=== PATIENT | female | born 1980 | race Caucasian/White ===

== ENCOUNTER → 2016-11-17 | Outpatient (CLI) | payer OTHER ==
[~2016-11-17] MED LIST: PRENTAB9 PO
[2016-11-17 18:05] LABS: MEAN CORPUSCULAR HGB CONC 33.5 g/dl (32.0-36.5); MEAN CORPUSCULAR VOLUME 95.6 fl (80.0-96.0); RED CELL DISTRIBUTION WIDTH 12.7 % (11.5-14.5); WHITE BLOOD COUNT 7.7 K/mm3 (4.0-10.0)
== END | disposition home or self-care (01) ==
LOC: M SMT 14:33
PROVIDERS: ATTEND Advanced Practice Midwife
DX: Z34.82 Encounter for supervision of other normal pregnancy, second trimester (principal); Z36 Encounter for antenatal screening of mother; Z3A.00 Weeks of gestation of pregnancy not specified

== ENCOUNTER 2016-12-08 08:22 | Outpatient (CLI) | payer OTHER ==
[~2016-12-08] VITALS: Ht 167.6 cm; Wt 90.0 kg
[2016-12-08] MEDS ORDERED: ACET50TA PO (08:29)
[2016-12-08 09:56] VITALS: BP 139/65
[2016-12-08] MEDS ORDERED: ULTRACET TAB PO PRN (10:00)
[2016-12-08 10:24] VITALS: BP 124/60
[2016-12-08 10:30] LABS: AMYLASE 74 U/L (25-115)
[2016-12-08] MEDS ORDERED: PRIL20CA9 PO (11:03)
[2016-12-08] MEDS ORDERED: TRAM37.53 PO (13:48)
== END 2016-12-08 10:26 | disposition home or self-care (01) ==
LOC: M LDO 08:22
PROVIDERS: ATTEND Obstetrics & Gynecology
DX: O26.893 Other specified pregnancy related conditions, third trimester (principal); Z3A.30 30 weeks gestation of pregnancy

== ENCOUNTER → 2017-01-13 | Outpatient (REF) | payer OTHER ==
[~2017-01-13] MED LIST changes: +ACET50TA PO; +PRIL20CA9 PO; +TRAM37.53 PO
== END ==
LOC: M LAB REF 16:56
PROVIDERS: ATTEND Obstetrics & Gynecology
DX: Z34.83 Encounter for supervision of other normal pregnancy, third trimester (principal); Z36 Encounter for antenatal screening of mother; Z3A.00 Weeks of gestation of pregnancy not specified

== ENCOUNTER → 2017-01-14 | Outpatient (REF) | payer OTHER | LOC: M LAB REF 16:50 | PROVIDERS: ATTEND Advanced Practice Midwife | DX: Z34.83 Encounter for supervision of other normal pregnancy, third trimester (principal); Z36 Encounter for antenatal screening of mother; Z3A.00 Weeks of gestation of pregnancy not specified ==

== ENCOUNTER 2017-01-25 12:10 | Inpatient (IN) | payer OTHER ==
[~2017-01-25] VITALS: Ht 167.6 cm; Wt 95.0 kg
[2017-01-25] MEDS ORDERED: LR 1,000 ML IV SCH (12:16)
[2017-01-25 12:23] VITALS: BP 121/69
[2017-01-25] MEDS ORDERED: BICITRA 30ML SOLN UDC PO ONE (12:30)
[2017-01-25 13:41] VITALS: BP 127/57
[2017-01-25 13:47] LABS: MEAN CORPUSCULAR HEMOGLOBIN 30.2 pg (27.0-33.0); MEAN CORPUSCULAR HGB CONC 33.1 g/dl (32.0-36.5); MEAN CORPUSCULAR VOLUME 91.1 fl (80.0-96.0); RED CELL DISTRIBUTION WIDTH 12.5 % (11.5-14.5)
[2017-01-25 14:05] LABS: ALT/SGPT 19 U/L (12-78); AST/SGOT 19 U/L (15-37); BILIRUBIN,TOTAL 0.2 MG/DL (0.2-1.0); CREATININE FOR GFR 0.67 MG/DL (0.55-1.02); GLOMERULAR FILTRATION RATE > 60.0 (>60); URIC ACID 5.5 MG/DL (2.6-6.0)
[2017-01-25 14:45] VITALS: BP 101/54
[2017-01-25] MEDS ORDERED: OXYC1TAB23 PO (15:58)
[2017-01-25] MEDS ORDERED: LACTATED RINGER'S 1000 ML IV ONE (16:00)
[2017-01-25 16:13] VITALS: BP 117/67
--- NOTE | 2017-01-25 16:17 | HPE ---
DATE OF ADMISSION: 01/25/2017 This is a 36-year-old 3, para 2 female at 37-5/7 weeks gestation by 8-week ultrasound, estimated date of confinement (EDC) 02/10/2017, presents for elective repeat section. Indication for delivery prior to 39 weeks is a recent diagnosis of preeclampsia. COURSE: The patient initiated care at 9 weeks gestation on 07/07/2016. Her first trimester blood pressure was 122/82, weight 183 pounds. At 37 weeks on 01/22/2017, she had a blood pressure of 142/92 and trace proteinuria. 24-hour urine was elevated at 325 mg. She also had an elevated uric acid level. At a subsequent visit on 01/25/2017, she had persistently elevated blood pressure of 140/88. OBSTETRICAL HISTORY: 1. September 2004, 41 weeks, section for an 8 pound 9 ounce male . 2. August 2012, 39 weeks, section for an 8 pound 15 ounce male . MEDICAL HISTORY: Recurrent urinary tract infections. SURGICAL HISTORY: 1. Ureteral reimplantation as a child. 2. section times two. ALLERGIES: AUGMENTIN. SOCIAL HISTORY: The patient is . She denies cigarettes, alcohol or drug use. FAMILY HISTORY: Noncontributory. PHYSICAL EXAMINATION: Blood pressure 140/80, weight 225. She is in no apparent distress. Head and neck exam: Normal. Lungs: Clear. Heart: Regular rate and rhythm. Abdomen: Nontender and gravid. heart tones: Category 1. Extremities: Nontender. Trace edema. LABORATORY: Blood type O positive, rubella immune, RPR nonreactive. Hepatitis B and C negative. HIV negative. Diabetes screen 117. GBS negative on 01/13/2017. ASSESSMENT: A 36-year-old 3, para 2 female at 37-5/7 weeks gestation by 8-week ultrasound, presents with preeclampsia. The patient has a history of two prior sections. PLAN: Repeat section. Consent signed. Surgery is planned for 01/25/2017. .
[2017-01-25] MEDS ORDERED: MORPHINE PRES-FREE INJ 10 MG/10 ML VIAL (J2274) As Ordered ONE (17:32)
[2017-01-25] MEDS ORDERED: ePHEDrine SULFATE 25 MG/5 ML(5MG/ML) SYRINGE As Ordered ONE (17:32)
[2017-01-25] MEDS ORDERED: OXYTOCIN INJ 10 UNITS/ML VIAL (J2590) As Ordered ONE (17:35)
[2017-01-25] MEDS ORDERED: ONDANSETRON 4MG/2ML VIAL (J2405) As Ordered ONE (17:37)
[2017-01-25] MEDS ORDERED: KETOROLAC 60 MG/2 ML VIAL (J1885) As Ordered ONE (17:47)
[2017-01-25] MEDS ORDERED: fentaNYL 100 MCG/2 ML INJECTION (J3010) As Ordered ONE (18:09)
[2017-01-25] MEDS ORDERED: MEPERIDINE 50 MG/ML 1ML VIAL (J2175) As Ordered ONE (18:18)
[2017-01-25] MEDS: LR 1,000 ML IV SCH (18:41)
[2017-01-25] MEDS ORDERED: ONDANSETRON 4MG/2ML VIAL (J2405) IV PRN (18:45)
[2017-01-25] MEDS ORDERED: OXYTOCIN DRIP 30 UNITS in APPROPRIATE DILUENT 1 EA IV ONE (18:45)
[2017-01-25] MEDS ORDERED: RHOGAM 300 MCG (1500 IU) INJ (J2790) IM SCH (18:45)
[2017-01-25] MEDS ORDERED: MEASLES,MUMPS,RUBELLA VACCINE INJ (MMR-II) (90707) SC SCH (18:45)
[2017-01-25] MEDS ORDERED: DOCUSATE SODIUM 100 MG CAP PO PRN (18:45)
[2017-01-25] MEDS ORDERED: OXYTOCIN 30 UNITS IN 0.9% NaCl 500ML IV BAG (J2590) As Ordered ONE (18:49)
[2017-01-25] MEDS ORDERED: fentaNYL 100 MCG/2 ML INJECTION (J3010) IV PRN (19:00)
[2017-01-25] MEDS ORDERED: METOCLOPRAMIDE INJ 10MG/2ML VIAL (J2765) As Ordered ONE (20:11)
[2017-01-25 21:00] VITALS: BP 129/68
[2017-01-25 21:49] VITALS: BP 135/62
[2017-01-25] MEDS: diphenhydrAMINE INJ 50MG/ML VIAL (J1200) IV PRN (22:58)
[2017-01-26] MEDS: KETOROLAC 30 MG/ML VIAL (J1885) IV SCH ×4 (00:02→18:38)
--- NOTE | 2017-01-26 00:18 | RO ---
DATE OF PROCEDURE: 01/25/2017 PREPROCEDURE DIAGNOSIS: 37-5/7 weeks, preeclampsia, prior section times two. POSTPROCEDURE DIAGNOSIS: 37-5/7 weeks, preeclampsia, prior section times two. PROCEDURE: Repeat low transverse section. SURGEON: Dr. Augustin Jim HEATING ELEMENT REPAIRER: Juana Bhardwaj ANESTHESIA: Spinal. ESTIMATED BLOOD LOSS: 600 mL. FLUIDS: 1700 mL of lactated Ringer's. URINE OUTPUT: 300 mL. FINDINGS: 3688 gram or 8 pound 2 ounce male infant, scores 9 and 9, vertex position. Dense adhesions of the bladder to the lower uterine segment with numerous venous sinuses of the lower uterine segment and bladder. There was an incidental cystotomy noted in the dome of the bladder, which was repaired and is described in the report. COMPLICATIONS: Incidental cystotomy. DESCRIPTION OF PROCEDURE: The patient was taken to the operating room where spinal anesthesia was induced. She was prepped and draped in a sterile fashion in the supine position. A De Leon catheter was placed. A Pfannenstiel skin incision was made with a scalpel and carried through to the fascia, the fascia was nicked and extended. Fascia was dissected off the rectus muscles, the rectus muscles were divided, peritoneal cavity was entered. A bladder flap was created. A curvilinear incision was made in the lower uterine segment until clear fluid was noted. This was extended manually. The was delivered from the vertex position without difficulty using standard maneuvers. A nuchal cord times one was reduced manually. Shoulders delivered with ease. The cried spontaneously. The cord was doubly clamped and cut. The was handed off to awaiting nurses. The placenta was expressed. The uterus was exteriorized and cleared of clots and debris. The uterine incision was closed with #0 Vicryl in a running locked fashion. A second imbricating layer of #0 Vicryl was placed. Upon inspection, it appeared that the bladder, which was poorly demarcated, had been partially sewn into the hysterotomy incision. While attempting to reduce the bladder from the incision, a cystotomy was created in the dome of the bladder, approximately 1.5 cm in length. Upon inspection, it appeared to be away from the ureter. The bladder was repaired in the following fashion: #4-0 Vicryl was used and the first layer of bladder was closed in a running fashion, the second layer, including the muscularis of the bladder was then closed in a running fashion. Upon completion of the cystostomy repair, the bladder was filled in a retrograde fashion with sterile milk. There was no evidence of leaking from the bladder and no evidence of any other cystotomy present. The bladder was subsequently drained. The uterus was placed back in the abdominal cavity. Good hemostasis was noted. The peritoneum was closed with #2-0 Vicryl in a running fashion. The fascia was closed with #0 Vicryl in a running fashion. The subcutaneous tissue was irrigated, the deep layers closed with #3-0 chromic in a running fashion, the skin was closed with #4-0 Monocryl subcuticular sutures. Sponge, instrument and needle counts were correct. The patient went to the recovery room in stable condition.
[2017-01-26] MEDS: LR 1,000 ML IV SCH (02:41)
[2017-01-26] MEDS: PERCOCET 5MG/325MG TAB PO PRN ×4 (04:16→19:40)
[2017-01-26] MEDS: diphenhydrAMINE INJ 50MG/ML VIAL (J1200) IV PRN (05:20)
[2017-01-26 06:59] LABS: MEAN CORPUSCULAR HEMOGLOBIN 30.2 pg (27.0-33.0); MEAN CORPUSCULAR HGB CONC 33.2 g/dl (32.0-36.5); RED CELL DISTRIBUTION WIDTH 12.4 % (11.5-14.5); WHITE BLOOD COUNT 9.7 K/mm3 (4.0-10.0)
[2017-01-26 07:10] VITALS: BP 119/56
[2017-01-26] MEDS: PRENATAL VITAMIN TAB PO SCH (07:58)
[2017-01-26] MEDS: NITROFURANTOIN (MACROBID) 100 MG CAP PO SCH (07:58)
[2017-01-26 10:00] VITALS: BP 113/58
[2017-01-26 14:07] VITALS: BP 133/64
[2017-01-26 18:47] VITALS: BP 124/85
[2017-01-26 22:14] VITALS: BP 120/56
[2017-01-27] MEDS: PERCOCET 5MG/325MG TAB PO PRN ×5 (00:03→22:41)
[2017-01-27] MEDS: IBUPROFEN 800 MG TAB PO SCH ×3 (02:06→17:08)
[2017-01-27 05:44] VITALS: BP 117/57
[2017-01-27] MEDS: DOCUSATE SODIUM 100 MG CAP PO SCH ×2 (09:52→21:40)
[2017-01-27] MEDS: PRENATAL VITAMIN TAB PO SCH (09:52)
[2017-01-27] MEDS: NITROFURANTOIN (MACROBID) 100 MG CAP PO SCH (09:53)
[2017-01-27] MEDS: FERROUS GLUCONATE 324 MG TAB PO SCH ×2 (09:53→21:40)
[2017-01-27] MEDS: SIMETHICONE 80 MG CHEW TAB PO PRN ×2 (09:54→22:40)
[2017-01-27 14:25] VITALS: BP 126/68
[2017-01-27] MEDS ORDERED: ONDANSETRON 4 MG ORAL DISINTEGRATING TAB (S0181) PO PRN (15:45)
[2017-01-27 18:29] VITALS: BP 130/73
[2017-01-28] MEDS: IBUPROFEN 800 MG TAB PO SCH ×3 (02:06→18:18)
[2017-01-28] MEDS: PERCOCET 5MG/325MG TAB PO PRN ×3 (03:18→18:58)
[2017-01-28 05:39] VITALS: BP 132/74
[2017-01-28] MEDS: PRENATAL VITAMIN TAB PO SCH (09:11)
[2017-01-28] MEDS: NITROFURANTOIN (MACROBID) 100 MG CAP PO SCH (09:11)
[2017-01-28] MEDS: DOCUSATE SODIUM 100 MG CAP PO SCH ×2 (09:11→22:46)
[2017-01-28] MEDS: FERROUS GLUCONATE 324 MG TAB PO SCH ×2 (09:11→22:46)
[2017-01-28] MEDS ORDERED: NITRO10CA PO (11:33)
[2017-01-28] MEDS ORDERED: IBUP600T26 PO (11:33)
[2017-01-28] MEDS ORDERED: COLA100C3 PO (11:34)
[2017-01-28 18:55] VITALS: BP 129/77
[2017-01-29] MEDS: PERCOCET 5MG/325MG TAB PO PRN ×3 (00:23→12:50)
[2017-01-29] MEDS: IBUPROFEN 800 MG TAB PO SCH ×2 (02:33→09:53)
[2017-01-29 05:40] VITALS: BP 138/81
[2017-01-29] MEDS: DOCUSATE SODIUM 100 MG CAP PO SCH (09:51)
[2017-01-29] MEDS: FERROUS GLUCONATE 324 MG TAB PO SCH (09:52)
[2017-01-29] MEDS: PRENATAL VITAMIN TAB PO SCH (09:52)
[2017-01-29] MEDS: NITROFURANTOIN (MACROBID) 100 MG CAP PO SCH (09:52)
--- NOTE | 2017-01-29 15:30 | DSES ---
DATE OF ADMISSION: 01/25/2017 DATE OF DISCHARGE: HISTORY: 36-year-old, (G) 3, para (P) 2 female at 37 and 5/7 weeks gestation presented for repeat section. The indication for delivery prior to 39 weeks is diagnosis of preeclampsia, which was recently made. Preoperative course was otherwise unremarkable. Her medical history is significant for bilateral ureteral reimplantation surgery as a child. HOSPITAL COURSE: On 01/25/2017, the patient underwent primary low-transverse section. Surgery was complicated by an incidental cystotomy, which was repaired at the time of . The remainder of the surgery was uncomplicated. Postoperative course was unremarkable. She did have De Leon catheter drainage in place during hospitalization to allow healing of the cystotomy repair. went to the intensive care unit (NICU). On postoperative day #4, the patient was deemed stable for discharge. ADMISSION DIAGNOSES: 37 and 5/7 weeks. Prior sections times two. Preeclampsia. DISCHARGE DIAGNOSES: 37 and 5/7 weeks. Prior sections times two. Preeclampsia. PROCEDURES: Repeat low-transverse section, repair of incidental cystotomy. DISPOSITION: Patient will followup for catheter removal. Instructions reviewed.
[2017-01-29] MEDS ORDERED: IBUP-1114 PO (15:34)
[2017-01-29] MEDS ORDERED: OXYC1TAB23 PO (15:34)
== END 2017-01-29 16:30 | disposition home or self-care (01) | DRG 766 ==
LOC: M LDI 12:10 → M OBS 21:09
PROVIDERS: ADMIT Specialist; ATTEND Specialist
PROC: 0TQB0ZZ Repair Bladder, Open Approach (ICD-10-PCS; 2017-01-25)
PROC: 10D00Z1 Extraction of Products of Conception, Low, Open Approach (ICD-10-PCS; principal; 2017-01-25 17:45)
DX: O14.94 Unspecified pre-eclampsia, complicating childbirth (principal); O34.211 Maternal care for low transverse scar from previous cesarean delivery; Z3A.37 37 weeks gestation of pregnancy; O69.81X0 Labor and delivery complicated by cord around neck, without compression, not applicable or unspecified; O71.5 Other obstetric injury to pelvic organs; Z37.0 Single live birth

== ENCOUNTER → 2017-03-24 | Outpatient (REF) | payer OTHER ==
[~2017-03-24] MED LIST changes: +COLA100C3 PO; +IBUP-1114 PO; +IBUP600T26 PO; +NITRO10CA PO; +OXYC1TAB23 PO
== END ==
LOC: M LAB REF 13:12
PROVIDERS: ATTEND Advanced Practice Midwife
DX: R30.0 Dysuria (principal)

== ENCOUNTER → 2017-04-12 | Outpatient (REF) | payer OTHER ==
[~2017-04-12] MED LIST changes: -COLA100C3 PO; +COLA100C5 PO; +IBUP-1022 PO; -IBUP600T26 PO
== END ==
LOC: M LAB REF 16:27
PROVIDERS: ATTEND Physician Assistant
DX: N39.0 Urinary tract infection, site not specified (principal)

== ENCOUNTER → 2017-05-04 | Outpatient (REF) | payer OTHER | LOC: M LAB REF 17:10 | PROVIDERS: ATTEND Advanced Practice Midwife | DX: R30.0 Dysuria (principal) ==

== ENCOUNTER → 2017-09-01 | Outpatient (REF) | payer OTHER | LOC: M LAB REF 09:39 | PROVIDERS: ATTEND Physician Assistant | DX: R30.0 Dysuria (principal) ==

== ENCOUNTER → 2017-10-29 | Outpatient (REF) | payer OTHER ==
[2017-11-04 14:15] LABS: HPV HYBRID CAPTURE II Negative (Negative)
== END ==
LOC: M LAB REF 17:53
DX: Z12.4 Encounter for screening for malignant neoplasm of cervix (principal)

== ENCOUNTER 2017-11-04 19:25 | Emergency (ER) | payer OTHER | END 2017-11-04 23:29 | disposition left against medical advice (07) | LOC: M ED 19:25 | DX: Z53.21 Procedure and treatment not carried out due to patient leaving prior to being seen by health care provider (principal) ==

== ENCOUNTER → 2017-11-16 | Outpatient (REF) | payer OTHER ==
[2017-11-16 13:31] LABS: INFLUENZA A AMPLIFICATION NEGATIVE (NEGATIVE); INFLUENZA B AMPLIFICATION NEGATIVE (NEGATIVE); RSV AMPLIFICATION NEGATIVE (NEGATIVE)
== END ==
LOC: M LAB REF 12:10
DX: J11.1 Influenza due to unidentified influenza virus with other respiratory manifestations (principal)

== ENCOUNTER → 2018-03-30 | Outpatient (REF) | payer OTHER ==
[2018-03-30 16:00] LABS: HEMATOCRIT 40.6 % (36.0-47.0); HEMOGLOBIN 13.3 g/dl (12.0-15.5); MEAN CORPUSCULAR HEMOGLOBIN 30.7 pg (27.0-33.0); MEAN CORPUSCULAR HGB CONC 32.8 g/dl (32.0-36.5); MEAN CORPUSCULAR VOLUME 93.8 fl (80.0-96.0); PLATELET COUNT, AUTOMATED 171 10^3/uL (150-450); RED BLOOD COUNT 4.33 10^6/uL (4.00-5.40); RED CELL DISTRIBUTION WIDTH 12.3 % (11.5-14.5); WHITE BLOOD COUNT 4.9 10^3/uL (4.0-10.0)
[2018-03-30 16:47] LABS: TOTAL 25(OH) VITAMIN D 17.8 NG/ML (30.0-100.0)
[2018-03-30 17:00] LABS: ALBUMIN 3.9 GM/DL (3.2-5.2); ALBUMIN/GLOBULIN RATIO 1.26 (1.00-1.93); ALKALINE PHOSPHATASE 69 U/L (45-117); ALT/SGPT 17 U/L (12-78); ANION GAP 7 MEQ/L (8-16); AST/SGOT 9 U/L (7-37); BILIRUBIN,TOTAL 0.2 MG/DL (0.2-1.0); BLOOD UREA NITROGEN 14 MG/DL (7-18); CALCIUM LEVEL 8.7 MG/DL (8.5-10.1); CARBON DIOXIDE LEVEL 27 MEQ/L (21-32); CHLORIDE LEVEL 107 MEQ/L (98-107); CREATININE FOR GFR 0.82 MG/DL (0.55-1.30); FREE T4 0.87 NG/DL (0.76-1.46); GLOMERULAR FILTRATION RATE > 60.0 (>60); GLUCOSE, FASTING 85 MG/DL (70-100); POTASSIUM SERUM 4.5 MEQ/L (3.5-5.1); SODIUM LEVEL 141 MEQ/L (136-145)
== END ==
LOC: M SFHCPLAZ 14:13
DX: F41.9 Anxiety disorder, unspecified (principal); F32.2 Major depressive disorder, single episode, severe without psychotic features

== ENCOUNTER → 2019-04-02 | Outpatient (REF) | payer BC ==
[~2019-04-02] MED LIST changes: -ACET50TA PO; +BUSP5TA PO; +CEFD1CAP8 PO; +MAPA500T2 PO; +NITR-67 PO; -NITRO10CA PO
[2019-04-02 21:19] LABS: APPEARANCE, URINE CLOUDY (CLEAR); BACTERIA, URINE AUTO 3+ (NEGATIVE); BILIRUBIN, URINE AUTO NEGATIVE (NEGATIVE); BLOOD, URINE BLOOD 3+ (NEGATIVE); COLOR, URINE YELLOW (YELLOW); GLUCOSE, URINE (UA) AUTO NEGATIVE (NEGATIVE); KETONE, URINE AUTO NEGATIVE (NEGATIVE); LEUKOCYTE ESTERASE, URINE AUTO TRACE (NEGATIVE); MUCUS, URINE SMALL (NEGATIVE); NITRITE, URINE AUTO POSITIVE (NEGATIVE); PROTEIN, URINE AUTO NEGATIVE (NEGATIVE); RBC, URINE AUTO 3 /HPF (0-3); SPECIFIC GRAVITY URINE AUTO 1.027 (1.002-1.035); SQUAMOUS EPITHELIAL CELL UR AU 1 /HPF (0-6); UROBILINOGEN, URINE AUTO 0.2 mg/dL (0.0-2.0); WBC, URINE AUTO 14 /HPF (0-3)
== END ==
LOC: M LAB REF 09:45
PROVIDERS: ATTEND Physician Assistant Medical
DX: N39.0 Urinary tract infection, site not specified (principal)

== ENCOUNTER → 2019-06-15 | Outpatient (REF) | payer BC ==
[2019-06-15 21:37] LABS: APPEARANCE, URINE HAZY (CLEAR); BACTERIA, URINE AUTO 2+ (NEGATIVE); BILIRUBIN, URINE AUTO NEGATIVE (NEGATIVE); BLOOD, URINE BLOOD 1+ (NEGATIVE); COLOR, URINE YELLOW (YELLOW); GLUCOSE, URINE (UA) AUTO NEGATIVE (NEGATIVE); KETONE, URINE AUTO 2+ mg/dL (NEGATIVE); LEUKOCYTE ESTERASE, URINE AUTO NEGATIVE (NEGATIVE); MUCUS, URINE SMALL (NEGATIVE); NITRITE, URINE AUTO POSITIVE (NEGATIVE); PROTEIN, URINE AUTO NEGATIVE (NEGATIVE); RBC, URINE AUTO 7 /HPF (0-3); SPECIFIC GRAVITY URINE AUTO 1.026 (1.002-1.035); SQUAMOUS EPITHELIAL CELL UR AU 3 /HPF (0-6); UROBILINOGEN, URINE AUTO 0.2 mg/dL (0.0-2.0); WBC, URINE AUTO 17 /HPF (0-3)
== END ==
LOC: M LAB REF 09:52
PROVIDERS: ATTEND Physician Assistant
DX: R50.9 Fever, unspecified (principal); R05 Cough

== ENCOUNTER → 2019-10-12 | Outpatient (REF) | payer BC | LOC: M LAB REF 19:23 | PROVIDERS: ATTEND Physician Assistant | DX: R30.0 Dysuria (principal) ==

== ENCOUNTER → 2019-12-28 | Outpatient (REF) | payer BC ==
[2019-12-28 17:49] LABS: INFLUENZA A AMPLIFICATION NEGATIVE (NEGATIVE); INFLUENZA B AMPLIFICATION NEGATIVE (NEGATIVE)
== END ==
LOC: M LAB REF 16:31
PROVIDERS: ATTEND Physician Assistant
DX: J11.1 Influenza due to unidentified influenza virus with other respiratory manifestations (principal)

== ENCOUNTER → 2020-10-01 | Outpatient (CLI) | payer SELFPAY | LOC: M LABSMTC 12:50 | PROVIDERS: ATTEND Pediatrics | DX: Z20.828 Contact with and (suspected) exposure to other viral communicable diseases (principal) ==

== ENCOUNTER → 2021-02-27 | Outpatient (REF) | payer BC | LOC: M LAB REF 12:05 | PROVIDERS: ATTEND Physician Assistant | DX: R50.9 Fever, unspecified (principal); R53.83 Other fatigue ==

== ENCOUNTER → 2021-02-28 | Outpatient (REF) | payer BC | LOC: M LAB REF 16:59 | PROVIDERS: ATTEND Physician Assistant | DX: R19.7 Diarrhea, unspecified (principal) ==

== ENCOUNTER → 2021-05-09 | Outpatient (CLI) | payer BC ==
[2021-05-09 16:34] LABS: HEMOGLOBIN 13.2 g/dl (12.0-15.5); MEAN CORPUSCULAR HEMOGLOBIN 30.8 pg (27.0-33.0); MEAN CORPUSCULAR HGB CONC 32.2 g/dl (32.0-36.5); MEAN CORPUSCULAR VOLUME 95.8 fl (80.0-96.0); PLATELET COUNT, AUTOMATED 164 10^3/uL (150-450); RED BLOOD COUNT 4.28 10^6/uL (4.00-5.40); WHITE BLOOD COUNT 5.1 10^3/uL (4.0-10.0)
[2021-05-09 16:53] LABS: ALBUMIN 3.5 GM/DL (3.2-5.2); ALT/SGPT 19 U/L (12-78); BILIRUBIN,TOTAL 0.1 MG/DL (0.2-1.0); BLOOD UREA NITROGEN 18 MG/DL (7-18); CARBON DIOXIDE LEVEL 29 MEQ/L (21-32); CHLORIDE LEVEL 109 MEQ/L (98-107); CHOLESTEROL LEVEL 152 MG/DL (<200); CHOLESTEROL RISK RATIO 2.202 (<5); CREATININE FOR GFR 0.94 MG/DL (0.55-1.30); FREE T4 0.81 NG/DL (0.76-1.46); GLOMERULAR FILTRATION RATE > 60.0 (>58); GLUCOSE, FASTING 101 MG/DL (70-100); HDL CHOLESTEROL 69 MG/DL (>40); LDL CHOLESTEROL 74 MG/DL (<100); NON-HDL-C 83 MG/DL; POTASSIUM SERUM 4.6 MEQ/L (3.5-5.1); SODIUM LEVEL 143 MEQ/L (136-145); TOTAL PROTEIN 6.2 GM/DL (6.4-8.2); TRIGLYCERIDES LEVEL 47 MG/DL (<150)
[2021-05-09 16:57] LABS: TOTAL 25(OH) VITAMIN D 26.6 NG/ML (30.0-100.0)
== END ==
LOC: M WUC 11:45
PROVIDERS: ATTEND Nurse Practitioner Family
DX: R53.83 Other fatigue (principal); Z13.220 Encounter for screening for lipoid disorders; E55.9 Vitamin D deficiency, unspecified

== ENCOUNTER → 2021-05-16 | Outpatient (CLI) | payer BC ==
--- NOTE | 2021-05-16 08:56 | REP ---
INDICATION: R10.11 RUQ ABD PAIN. COMPARISON: None. TECHNIQUE: Real-time sonographic evaluation of right upper quadrant performed. FINDINGS: The gallbladder demonstrates no evidence of intraluminal sludge or calculi, wall thickening or pericholecystic fluid. There is no intrahepatic or extrahepatic biliary dilatation, common bile duct measures 3 mm in maximum diameter. The liver demonstrates homogeneous echotexture with no gross mass. The visualized pancreas is grossly unremarkable, not optimally seen due to overlying bowel gas. The right kidney demonstrates no hydronephrosis, with a normal size of 13.0 cm in length. No free fluid is seen. IMPRESSION: Negative right upper quadrant ultrasound. <Electronically signed by Bryan Kang > 05/16/21 [id number]
== END ==
LOC: M WHC 08:07
PROVIDERS: ATTEND Nurse Practitioner Family
DX: R10.11 Right upper quadrant pain (principal)

== ENCOUNTER 2022-03-21 21:43 | Emergency (ER) | payer BC ==
[~2022-03-21 21:43] MED LIST changes: -CEFD1CAP8 PO; +CEFD300C41 PO
[2022-03-21 22:11] LABS: HEMATOCRIT 38.7 % (36.0-47.0); HEMOGLOBIN 13.2 g/dl (12.0-15.5); MEAN CORPUSCULAR HGB CONC 34.1 g/dl (32.0-36.5); MEAN CORPUSCULAR VOLUME 93.9 fl (80.0-96.0); PLATELET COUNT, AUTOMATED 239 10^3/uL (150-450); RED BLOOD COUNT 4.12 10^6/uL (4.00-5.40)
[2022-03-21] MEDS ORDERED: LIDOCAINE 1% MDV 20ML VIAL SC ONE (23:10)
[2022-03-22 00:12] LABS: HEMATOCRIT 37.7 % (36.0-47.0); HEMOGLOBIN 12.4 g/dl (12.0-15.5); MEAN CORPUSCULAR HEMOGLOBIN 31.4 pg (27.0-33.0); MEAN CORPUSCULAR HGB CONC 32.9 g/dl (32.0-36.5); MEAN CORPUSCULAR VOLUME 95.4 fl (80.0-96.0); PLATELET COUNT, AUTOMATED 152 10^3/uL (150-450); RED BLOOD COUNT 3.95 10^6/uL (4.00-5.40); WHITE BLOOD COUNT 8.9 10^3/uL (4.0-10.0)
[2022-03-22 00:15] VITALS: BP 119/72
== END 2022-03-22 00:33 | disposition home or self-care (01) ==
LOC: M ED 21:43
DX: S65.111A Laceration of radial artery at wrist and hand level of right arm, initial encounter (principal); W25.XXXA Contact with sharp glass, initial encounter; Y92.009 Unspecified place in unspecified non-institutional (private) residence as the place of occurrence of the external cause; Y93.9 Activity, unspecified; Y99.9 Unspecified external cause status; Z88.1 Allergy status to other antibiotic agents; Z79.899 Other long term (current) drug therapy

== ENCOUNTER → 2022-12-03 | Outpatient (REF) | payer BC | LOC: M LAB REF 17:51 | PROVIDERS: ATTEND Nurse Practitioner Adult Health | DX: R35.0 Frequency of micturition (principal) ==

== ENCOUNTER → 2023-01-14 | Outpatient (REF) | payer BC ==
[2023-01-14 17:09] LABS: APPEARANCE, URINE CLEAR (CLEAR); BACTERIA, URINE AUTO NEGATIVE (NEGATIVE); BILIRUBIN, URINE AUTO NEGATIVE (NEGATIVE); BLOOD, URINE BLOOD NEGATIVE (NEGATIVE); COLOR, URINE YELLOW (YELLOW); GLUCOSE, URINE (UA) AUTO NEGATIVE (NEGATIVE); KETONE, URINE AUTO NEGATIVE (NEGATIVE); LEUKOCYTE ESTERASE, URINE AUTO NEGATIVE (NEGATIVE); MUCUS, URINE SMALL (NEGATIVE); NITRITE, URINE AUTO NEGATIVE (NEGATIVE); PROTEIN, URINE AUTO NEGATIVE (NEGATIVE); RBC, URINE AUTO 0 /HPF (0-3); SPECIFIC GRAVITY URINE AUTO 1.012 (1.002-1.035); SQUAMOUS EPITHELIAL CELL UR AU 0 /HPF (0-6); UROBILINOGEN, URINE AUTO 0.2 mg/dL (0.0-2.0); WBC, URINE AUTO 0 /HPF (0-3)
== END ==
LOC: M LAB REF 16:18
PROVIDERS: ATTEND Physician Assistant
DX: J02.9 Acute pharyngitis, unspecified (principal); N39.0 Urinary tract infection, site not specified

== ENCOUNTER → 2023-02-06 | Outpatient (REF) | payer BC ==
[2023-02-06 18:06] LABS: APPEARANCE, URINE HAZY (CLEAR); BACTERIA, URINE AUTO NEGATIVE (NEGATIVE); BILIRUBIN, URINE AUTO NEGATIVE (NEGATIVE); BLOOD, URINE BLOOD NEGATIVE (NEGATIVE); COLOR, URINE YELLOW (YELLOW); GLUCOSE, URINE (UA) AUTO NEGATIVE (NEGATIVE); KETONE, URINE AUTO TRACE mg/dL (NEGATIVE); LEUKOCYTE ESTERASE, URINE AUTO 3+ (NEGATIVE); NITRITE, URINE AUTO NEGATIVE (NEGATIVE); PROTEIN, URINE AUTO NEGATIVE (NEGATIVE); RBC, URINE AUTO 2 /HPF (0-3); SPECIFIC GRAVITY URINE AUTO 1.017 (1.002-1.035); SQUAMOUS EPITHELIAL CELL UR AU 6 /HPF (0-6); UROBILINOGEN, URINE AUTO 0.2 mg/dL (0.0-2.0); WBC, URINE AUTO 1 /HPF (0-3)
== END ==
LOC: M LAB REF 17:20
PROVIDERS: ATTEND Physician Assistant Medical
DX: N39.0 Urinary tract infection, site not specified (principal)

== ENCOUNTER → 2023-03-01 | Outpatient (REF) | payer BC | LOC: M LAB REF 21:37 | PROVIDERS: ATTEND Physician Assistant Medical | DX: J02.9 Acute pharyngitis, unspecified (principal) ==

== ENCOUNTER → 2023-03-10 | Outpatient (CLI) | payer BC ==
[2023-03-10 19:05] LABS: LIPASE 29 U/L (12-53)
[2023-03-10 19:07] LABS: ALBUMIN 3.4 G/DL (3.2-5.2); ALKALINE PHOSPHATASE 53 U/L (46-116); ALT/SGPT 21 U/L (7.0-40); AMYLASE 70 U/L (30-118); AST/SGOT 25 U/L (<34); BILIRUBIN,TOTAL 0.2 MG/DL (0.3-1.2); BLOOD UREA NITROGEN 16 MG/DL (9-23); CALCIUM LEVEL 8.6 MG/DL (8.5-10.1); CARBON DIOXIDE LEVEL 26 MMOL/L (20-31); CHLORIDE LEVEL 102 MMOL/L (98-107); CREATININE FOR GFR 0.83 MG/DL (0.55-1.30); GLOMERULAR FILTRATION RATE > 60.0 (>58); GLUCOSE, FASTING 74 MG/DL (60-100); POTASSIUM SERUM 3.7 MMOL/L (3.5-5.1); SODIUM LEVEL 136 MMOL/L (136-145); TOTAL PROTEIN 6.1 G/DL (5.7-8.2)
[2023-03-10 19:09] LABS: FREE T4 0.97 NG/DL (0.89-1.76); THYROID STIMULATING HORMONE 2.078 uIU/ML (0.55-4.78)
[2023-03-10 19:27] LABS: HEPATITIS B SURFACE ANTIGEN NEGATIVE (NEGATIVE)
[2023-03-10 19:48] LABS: HEPATITIS B CORE ANTIBODY IGM NEGATIVE (NEGATIVE); HEPATITIS C VIRUS ABY INDEX 0.1 INDEX (<0.8)
[2023-03-12 18:20] LABS: HEMATOCRIT 36.3 % (36.0-47.0); HEMOGLOBIN 12.4 g/dl (12.0-15.5); MEAN CORPUSCULAR HEMOGLOBIN 30.8 pg (27.0-33.0); MEAN CORPUSCULAR HGB CONC 34.2 g/dl (32.0-36.5); MEAN CORPUSCULAR VOLUME 90.1 fl (80.0-96.0); PLATELET COUNT, AUTOMATED 168 10^3/uL (150-450); RED BLOOD COUNT 4.03 10^6/uL (4.00-5.40); WHITE BLOOD COUNT 3.8 10^3/uL (4.0-10.0)
[2023-03-12 19:21] LABS: ATYPICAL LYMPH 6 % (0-5); LYMPHOCYTES 45 % (16-44); MONOCYTES 12 % (0-5); NEUTROPHILS 35 % (28-66); PLASMA CELL 1 % (0-0)
[2023-03-12 19:22] LABS: PLATELET ESTIMATE NORMAL (NORMAL)
[2023-03-13 14:10] LABS: H PYLORI SERUM QUANT IGM <9.0 units (0.0-8.9); H PYLORI SERUM QUANT IgG ABY 0.06 (0.00-0.79)
== END ==
LOC: M LAB 17:44
PROVIDERS: ATTEND Nurse Practitioner Adult Health
DX: R11.2 Nausea with vomiting, unspecified (principal); R19.7 Diarrhea, unspecified

== ENCOUNTER → 2023-03-12 | Outpatient (REF) | payer BC | LOC: M LAB REF 18:47 | PROVIDERS: ATTEND Nurse Practitioner Adult Health | DX: R19.7 Diarrhea, unspecified (principal) ==

== ENCOUNTER → 2024-07-14 | Outpatient (CLI) | payer BC ==
[~2024-07-14] MED LIST changes: +CEFD1CAP9 PO; -CEFD300C41 PO; +TRAM1TAB42 PO; -TRAM37.53 PO
== END ==
LOC: M WHC 14:31
PROVIDERS: ATTEND Nurse Practitioner Adult Health
DX: Z12.31 Encounter for screening mammogram for malignant neoplasm of breast (principal)

== ENCOUNTER → 2024-09-16 | Outpatient (REF) | payer BC | LOC: M LAB REF 17:50 | PROVIDERS: ATTEND Physician Assistant Medical | DX: B34.9 Viral infection, unspecified (principal) ==

== ENCOUNTER → 2024-10-05 | Outpatient (REF) | payer BC | LOC: M LAB REF 16:02 | PROVIDERS: ATTEND Student in an Organized Health Care Education/Training Program | DX: R30.0 Dysuria (principal) ==

== ENCOUNTER → 2024-11-23 | Outpatient (REF) | payer BC | LOC: M LAB REF 17:04 | PROVIDERS: ATTEND Nurse Practitioner Adult Health | DX: N89.8 Other specified noninflammatory disorders of vagina (principal) ==

== ENCOUNTER 2025-01-30 08:50 | Emergency (ER) | payer OTHER, BC ==
[~2025-01-30] VITALS: Ht 167.6 cm; Wt 67.3 kg
[2025-01-30] MEDS: ONDANSETRON 4MG ORAL DISINTEGRATING TAB PO ONE (09:50)
[2025-01-30 09:59] VITALS: BP 149/67; TEMP 96.5; O2SAT 100
== END 2025-01-30 10:09 | disposition home or self-care (01) ==
LOC: M ED 08:50 → EDBD 08:50 → M ED 10:09
DX: S13.4XXA Sprain of ligaments of cervical spine, initial encounter (principal); S06.0X0A Concussion without loss of consciousness, initial encounter; Y92.9 Unspecified place or not applicable; Y93.9 Activity, unspecified; Y99.9 Unspecified external cause status; V49.40XA Driver injured in collision with unspecified motor vehicles in traffic accident, initial encounter; J45.909 Unspecified asthma, uncomplicated; F41.9 Anxiety disorder, unspecified; F32.A Depression, unspecified; Z88.1 Allergy status to other antibiotic agents; Z79.2 Long term (current) use of antibiotics; Z79.899 Other long term (current) drug therapy

== ENCOUNTER → 2025-04-26 | Outpatient (CLI) | payer OTHER, BC ==
[2025-04-26 17:39] LABS: CALCIUM LEVEL 9.5 MG/DL (8.5-10.1); CARBON DIOXIDE LEVEL 31.0 MMOL/L (20-31); CHLORIDE LEVEL 101.0 MMOL/L (98-107); CREATININE FOR GFR 0.92 MG/DL (0.55-1.30); GLOMERULAR FILTRATION RATE 78.7 (>58); IRON (FE) 127.0 UG/DL (50-170); POTASSIUM SERUM 4.4 MMOL/L (3.5-5.1); SODIUM LEVEL 142.0 MMOL/L (136-145)
[2025-04-26 17:40] LABS: PERCENT SATURATION 41.8 % (13.2-45.0)
[2025-04-26 17:41] LABS: TOTAL 25(OH) VITAMIN D 50.3 NG/ML (20.0-100.0)
[2025-04-26 17:42] LABS: VITAMIN B12 LEVEL 407.0 PG/ML (211-911)
[2025-04-26 17:51] LABS: BASO # 0.0 10^3/uL (0.0-0.2); BASO % 0.2 % (0.0-1.0); EOS # 0.0 10^3/uL (0.0-0.5); EOS % 0.8 % (0.0-3.0); LYMPH # 1.7 10^3/uL (1.5-5.0); LYMPH % 35.2 % (24.0-44.0); MONO # 0.5 10^3/uL (0.0-0.8); MONO % 10.1 % (2.0-8.0); NEUTROPHILS # 2.5 10^3/uL (1.5-8.5); NEUTROPHILS % 53.5 % (36.0-66.0); PLATELET COUNT, AUTOMATED 227 10^3/uL (150-450)
== END ==
LOC: M WUC 12:35
PROVIDERS: ATTEND Nurse Practitioner Adult Health
DX: R53.83 Other fatigue (principal)

== ENCOUNTER → 2025-08-05 | Outpatient (REF) | payer OTHER, BC ==
[~2025-08-05] MED LIST changes: -IBUP-1022 PO; +IBUP600T42 PO
== END ==
LOC: M LAB REF 19:30
PROVIDERS: ATTEND Registered Nurse
DX: R30.0 Dysuria (principal)